=== PATIENT | male | born 1995 | race Caucasian/White ===

== ENCOUNTER 2022-01-10 15:44 | Emergency (ER) | payer BC ==
[~2022-01-10 15:44] MED LIST: Iopamidol 300 61% 100 ML VIAL FS ONE
[2022-01-10] MEDS ORDERED: Ketorolac Tromethamine 30 MG/ML VIAL ONE (16:27)
[2022-01-10] MEDS ORDERED: Dexamethasone 10 MG/ML VIAL ONE (16:27)
[2022-01-10 17:04] LABS: Hemoglobin 12.8 g/dL (13.5-17.5); Mean Corpuscular HGB CONC 35.3 g/dL (32.0-36.0); Mean Corpuscular Hemoglobin 30.4 pg (27.0-33.0); Mean Corpuscular Volume 86.2 fl (81.2-95.1); Mean Platelet Volume 9.5 fl (7.4-10.4); Platelet Count 233 10x3/uL (150-450); RBC Distribution Width 13.2 % (11.5-14.5); Red Blood Cell (RBC) Count 4.21 10x6/uL (4.32-5.72); White Blood Cell (WBC) Count 8.4 10x3/uL (3.5-10.5)
[2022-01-10 17:15] LABS: ALT (SGPT) 123 U/L (8-55); AST (SGOT) 95 U/L (5-34); Albumin 4.1 g/dL (3.5-5.0); Alkaline Phosphatase 81 U/L (40-110); Anion Gap 13 mmol/L (10-20); BUN (Urea Nitrogen) 9 mg/dL (8.9-20.6); Calc. Creatinine Clearance 0 mL/min (70-130); Carbon Dioxide 26 mmol/L (22-29); Chloride 99 mmol/L (98-107); Estimated GFR 129; Globulin 2.8 g/dL (2.4-3.5); Glucose 125 mg/dL (70-105); Potassium 3.9 mmol/L (3.5-5.1); Protein, Total 6.9 g/dL (6.0-8.3); Sodium 134 mmol/L (136-145)
[2022-01-10 17:26] LABS: Band 5 % (5-11); Eosinophils 1 % (0-10); Lymphocytes 40 % (21-51); Monocytes 6 % (0-10); Reactive Lymphocytes 14 % (0-10)
[2022-01-10 17:27] LABS: Neutrophil 33 % (42-75)
[2022-01-10 17:29] LABS: MDiff Complete? YES; Platelet Morphology Comment Appears Adequate
[2022-01-10 17:30] LABS: RBC Morphology Normal
[2022-01-10 17:51] LABS: MONO NEGATIVE CONTROL ZONE White (Negative) (White); MONO POSITIVE CONTROL Pink Line (Positive) (PINK/RED); Mononucleosis POSITIVE (NEGATIVE)
[2022-01-12 12:38] LABS: EBV VCA IgM >160.0 U/mL (0.0-35.9); Nuclear AG IgG (EBNA) AB <18.0 U/mL (0.0-17.9)
== END 2022-01-10 18:53 | disposition home or self-care (01) ==
LOC: CSHERS 15:44
DX: J03.90 Acute tonsillitis, unspecified (principal)
CPT/HCPCS: 36415; 70491; 80053; 83605; 85025; 86308; 86664; 86665; 87081; 87430; 87798; 96374; 96375; J1100; J1885; Q9967